=== PATIENT | male | born 1995 | race Caucasian/White ===

== ENCOUNTER 2018-03-26 20:18 | Emergency (ER) | payer BC ==
[~2018-03-26] VITALS: Ht 175.3 cm; Wt 109.1 kg
[2018-03-26 20:23] VITALS: BP 137/83; TEMP 98.7
[2018-03-26] MEDS ORDERED: NORCO 325 MG-51 TAB PO (21:40)
[2018-03-26 22:12] VITALS: PULSE 104
== END 2018-03-26 22:12 | disposition home or self-care (01) ==
LOC: COL.ER 20:18
DX: S62.306A Unspecified fracture of fifth metacarpal bone, right hand, initial encounter for closed fracture (principal); F32.9 Major depressive disorder, single episode, unspecified; W01.0XXA Fall on same level from slipping, tripping and stumbling without subsequent striking against object, initial encounter; Y92.009 Unspecified place in unspecified non-institutional (private) residence as the place of occurrence of the external cause